=== PATIENT | female | born 1950 | race Caucasian/White ===

== ENCOUNTER 2022-05-14 10:51 | Inpatient (IN) | payer MEDICARE ==
[~2022-05-14] VITALS: Ht 157.5 cm; Wt 56.7 kg
[2022-05-14 10:52] VITALS: BP_SYST 122
[2022-05-14] MEDS ORDERED: IPRATROPIUM/ALBUTEROL SULFATE 3 ML AMPUL.NEB (DUONEB) INH ONE (11:00)
[2022-05-14] MEDS ORDERED: methylPREDNISolone SOD SUCC/PF 62.5 MG/ML VIAL IVP ONE (11:30)
[2022-05-14 11:39] LABS: BASOPHILS # (AUTO) 0.1 K/uL (0.0-0.2); BASOPHILS % (AUTO) 0.8 % (0.0-2.0); EOSINOPHILS % (AUTO) 0.2 % (0.0-4.0); HEMATOCRIT 42.2 % (36-48); HEMOGLOBIN 14.4 g/dL (12.0-16.0); LYMPHOCYTES # (AUTO) 1.5 K/uL (1.0-5.5); LYMPHOCYTES % (AUTO) 9.6 % (20.5-51.5); MEAN CORPUSCULAR HEMOGLOBIN 33 pg (27-31); MEAN CORPUSCULAR HGB CONC 34 % (32-36); MEAN CORPUSCULAR VOLUME 98 fL (79.0-98.0); MONOCYTES # (AUTO) 1.1 K/uL (0.0-1.0); MONOCYTES % (AUTO) 6.9 % (1.7-9.3); NEUTROPHILS # (AUTO) 13.4 K/uL (1.8-7.7); NEUTROPHILS % (AUTO) 82.5 % (40.0-70.0); PLATELET COUNT (AUTO) 294 K/uL (130-430); RED BLOOD CELL COUNT(AUTO) 4.33 MIL/uL (4.2-6.2); RED CELL DISTRIBUTION WIDTH 14.3 % (9.0-15.0); WHITE BLOOD COUNT (AUTO) 16.2 K/uL (4.8-10.8)
[2022-05-14 11:57] LABS: ALANINE AMINOTRANSFERASE 33 U/L (12-78); ASPARTATE AMINOTRANSFERASE 37 U/L (10-37); CALCIUM 10.9 mg/dL (8.4-11.0); CREATININE 1.54 mg/dL (0.55-1.30); GLUCOSE 217 mg/dL (70-99); TOTAL BILIRUBIN 1.1 mg/dL (0.0-1.0); UREA NITROGEN, BLOOD 26 mg/dL (8-21)
[2022-05-14 12:01] LABS: GFR AFRICAN AMERICAN 43 mL/min (>90)
[2022-05-14 12:13] LABS: ANION GAP 10 (5-15); CHLORIDE 95 mmol/L (98-107); POTASSIUM 6.5 mmol/L (3.5-5.1); SODIUM SERUM 128 mmol/L (136-145)
[2022-05-14] MEDS ORDERED: CALCIUM GLUCONATE 1 GM/10 ML VIAL IVP ONE (12:15)
[2022-05-14] MEDS ORDERED: DEXTROSE 50% JECT 50 ML DISP.SYRIN IVP ONE (12:15)
[2022-05-14] MEDS ORDERED: INSULIN REGULAR, HUMAN 10 UNITS/0.1 ML INJ IVP ONE (12:15)
[2022-05-14] MEDS ORDERED: SODIUM BICARBONATE 8.4% VIAL 50 MEQ/50 ML VIAL INJ ONE (12:15)
[2022-05-14] MEDS ORDERED: ASPIRIN 81 MG TAB.CHEW PO ONE (12:45)
[2022-05-14] MEDS ORDERED: FUROSEMIDE 40 MG/4 ML VIAL IVP ONE ×2 (12:45→22:30)
[2022-05-14] MEDS ORDERED: NITROGLYCERIN 1 INCH (GM) OINT. TP ONE (12:45)
[2022-05-14] MEDS ORDERED: MIDAZOLAM HCL 5 MG/5 ML VIAL IVP ONE (14:30)
[2022-05-14] MEDS ORDERED: ACET-73 PO (15:37)
[2022-05-14] MEDS ORDERED: VERA120C2 PO (15:37)
[2022-05-14] MEDS ORDERED: ASPI-1155 PO (15:37)
[2022-05-14] MEDS ORDERED: DIGO125T PO (15:37)
[2022-05-14] MEDS ORDERED: TRAZ-250 PO (15:37)
[2022-05-14] MEDS ORDERED: CALC-1196 PO (15:37)
[2022-05-14] MEDS ORDERED: LEVO88TA2 PO (15:37)
[2022-05-14] MEDS ORDERED: ASCO500T20 PO (15:37)
[2022-05-14] MEDS ORDERED: PRO20 PO (15:37)
[2022-05-14] MEDS ORDERED: FURO-149 PO (15:37)
[2022-05-14] MEDS ORDERED: LISI20TA30 PO (15:37)
[2022-05-14] MEDS ORDERED: WARF4TAB72 PO (15:37)
[2022-05-14] MEDS ORDERED: hydrALAZINE HCL 20 MG/ML VIAL IVP PRN (16:30)
[2022-05-14 18:44] VITALS: BP_SYST 153
[2022-05-14] MEDS ORDERED: IPRATROPIUM BROM 0.5 MG/2.5 ML VIAL.NEB (ATROVENT) INH SCH (19:00)
[2022-05-14] MEDS ORDERED: IPRATROPIUM/ALBUTEROL SULFATE 3 ML AMPUL.NEB (DUONEB) INH SCH (19:00)
[2022-05-14] MEDS ORDERED: LORazepam 2 MG/ML VIAL IVP PRN (19:00)
[2022-05-14 20:07] VITALS: BP_SYST 153
[2022-05-14] MEDS ORDERED: ACETAMINOPHEN 500 MG TABLET PO PRN (20:30)
[2022-05-14] MEDS ORDERED: cefTRIAXone 1 GM in D5W 50 ML IV SCH (21:00)
[2022-05-15 00:28] LABS: CALCIUM 10.5 mg/dL (8.4-11.0); CREATININE 1.35 mg/dL (0.55-1.30); POTASSIUM 3.2 mmol/L (3.5-5.1)
[2022-05-15 00:37] LABS: ALBUMIN 3.9 g/dL (3.4-4.8); TOTAL BILIRUBIN 1.5 mg/dL (0.0-1.0)
[2022-05-15 01:17] VITALS: BP_SYST 151
[2022-05-15] MEDS ORDERED: levalbuterol HCL 0.63 MG/3 ML VIAL.NEB INH PRN (02:00)
[2022-05-15] MEDS: levalbuterol HCL 0.63 MG/3 ML VIAL.NEB INH SCH ×3 (07:26→20:48)
[2022-05-15 07:57] LABS: CALCIUM 9.6 mg/dL (8.4-11.0); CREATININE 1.24 mg/dL (0.55-1.30)
[2022-05-15 08:00] VITALS: BP_SYST 143
[2022-05-15 08:01] LABS: BASOPHILS % (AUTO) 0.2 % (0.0-2.0); HEMATOCRIT 40.7 % (36-48); HEMOGLOBIN 14.1 g/dL (12.0-16.0); LYMPHOCYTES % (AUTO) 5.1 % (20.5-51.5); MEAN CORPUSCULAR HEMOGLOBIN 33 pg (27-31); MEAN CORPUSCULAR HGB CONC 35 % (32-36); MEAN CORPUSCULAR VOLUME 95 fL (79.0-98.0); MONOCYTES # (AUTO) 1.4 K/uL (0.0-1.0); MONOCYTES % (AUTO) 6.8 % (1.7-9.3); NEUTROPHILS # (AUTO) 17.9 K/uL (1.8-7.7); NEUTROPHILS % (AUTO) 87.9 % (40.0-70.0); PLATELET COUNT (AUTO) 240 K/uL (130-430); RED BLOOD CELL COUNT(AUTO) 4.28 MIL/uL (4.2-6.2); RED CELL DISTRIBUTION WIDTH 14.1 % (9.0-15.0)
[2022-05-15 08:13] LABS: ALBUMIN 3.1 g/dL (3.4-4.8); THYROID STIMULATING HORMONE 2.31 uIu/mL (0.36-3.74); TOTAL BILIRUBIN 1.1 mg/dL (0.0-1.0)
[2022-05-15 08:21] LABS: INR 2.9 (0.8-1.2)
[2022-05-15 08:24] LABS: POTASSIUM 2.7 mmol/L (3.5-5.1); WHITE BLOOD COUNT (AUTO) 20.4 K/uL (4.8-10.8)
[2022-05-15 08:35] LABS: PROTHROMBIN TIME 27.3 SECS (9.5-12.5)
[2022-05-15] MEDS ORDERED: POTASSIUM CHLORIDE 60 MEQ in NS 500 ML IV ONE (08:45)
[2022-05-15] MEDS: PANTOPRAZOLE SODIUM 40 MG/VIAL (PROTONIX) IVP SCH (09:17)
[2022-05-15] MEDS: cefTRIAXone 1 GM in D5W 50 ML IV SCH (09:18)
[2022-05-15] MEDS: VERAPAMIL HCL 120 MG TABLET.SA PO SCH (10:21)
[2022-05-15] MEDS: POTASSIUM CHLORIDE 20 MEQ/PKT PACKET PO SCH ×2 (10:21→21:51)
[2022-05-15] MEDS: FLUoxetine HCL 20 MG CAPSULE (PROzac) PO SCH (10:22)
[2022-05-15] MEDS: ASPIRIN 81 MG TAB.CHEW PO SCH (10:22)
[2022-05-15] MEDS: DIGOXIN 0.125 MG TABLET PO SCH (10:22)
[2022-05-15] MEDS: FUROSEMIDE 40 MG/4 ML VIAL IVP SCH ×2 (11:00→21:51)
[2022-05-15 11:34] VITALS: BP_SYST 116
[2022-05-15] MEDS: METHYLPREDNISOLONE SOD SUCC 40 MG/ML VIAL IVP SCH ×3 (12:03→23:56)
[2022-05-15 15:39] VITALS: BP_SYST 118
[2022-05-15] MEDS: WARFARIN SODIUM 4 MG TABLET PO SCH (17:27)
[2022-05-15] MEDS: traZODone HCL 50 MG TABLET (DESYREL) PO SCH (21:49)
[2022-05-16 00:46] VITALS: BP_SYST 129
[2022-05-16] MEDS: levalbuterol HCL 0.63 MG/3 ML VIAL.NEB INH SCH ×4 (01:35→20:13)
[2022-05-16] MEDS: METHYLPREDNISOLONE SOD SUCC 40 MG/ML VIAL IVP SCH ×4 (06:21→23:10)
[2022-05-16 07:21] LABS: BASOPHILS % (AUTO) 0.2 % (0.0-2.0); HEMATOCRIT 36.2 % (36-48); HEMOGLOBIN 12.5 g/dL (12.0-16.0); LYMPHOCYTES # (AUTO) 0.6 K/uL (1.0-5.5); LYMPHOCYTES % (AUTO) 3.6 % (20.5-51.5); MEAN CORPUSCULAR HEMOGLOBIN 33 pg (27-31); MEAN CORPUSCULAR HGB CONC 34 % (32-36); MEAN CORPUSCULAR VOLUME 96 fL (79.0-98.0); MONOCYTES # (AUTO) 0.6 K/uL (0.0-1.0); MONOCYTES % (AUTO) 3.3 % (1.7-9.3); NEUTROPHILS # (AUTO) 15.8 K/uL (1.8-7.7); NEUTROPHILS % (AUTO) 92.9 % (40.0-70.0); PLATELET COUNT (AUTO) 203 K/uL (130-430); RED BLOOD CELL COUNT(AUTO) 3.76 MIL/uL (4.2-6.2)
[2022-05-16 07:28] LABS: INR 2.5 (0.8-1.2); PROTHROMBIN TIME 24.3 SECS (9.5-12.5)
[2022-05-16 07:58] LABS: CALCIUM 8.6 mg/dL (8.4-11.0); CREATININE 1.03 mg/dL (0.55-1.30)
[2022-05-16 08:00] VITALS: BP_SYST 128
[2022-05-16 08:15] LABS: ALBUMIN 3.3 g/dL (3.4-4.8); THYROID STIMULATING HORMONE 0.9 uIu/mL (0.36-3.74); TOTAL BILIRUBIN 0.8 mg/dL (0.0-1.0)
[2022-05-16 08:20] LABS: POTASSIUM 2.7 mmol/L (3.5-5.1)
[2022-05-16] MEDS: VERAPAMIL HCL 120 MG TABLET.SA PO SCH (08:27)
[2022-05-16] MEDS: LEVOTHYROXINE SODIUM 0.088 MG TABLET PO SCH (08:27)
[2022-05-16] MEDS: FLUoxetine HCL 20 MG CAPSULE (PROzac) PO SCH (08:28)
[2022-05-16] MEDS: cefTRIAXone 1 GM in D5W 50 ML IV SCH (08:28)
[2022-05-16] MEDS: DIGOXIN 0.125 MG TABLET PO SCH (08:28)
[2022-05-16] MEDS: ASPIRIN 81 MG TAB.CHEW PO SCH (08:28)
[2022-05-16] MEDS: POTASSIUM CHLORIDE 20 MEQ/PKT PACKET PO SCH ×2 (08:29→22:55)
[2022-05-16] MEDS: PANTOPRAZOLE SODIUM 40 MG/VIAL (PROTONIX) IVP SCH (08:29)
[2022-05-16] MEDS ORDERED: KCL 20 mEq in 100 mL (PREMIX) 300 ML IV ONE (08:45)
[2022-05-16] MEDS ORDERED: KCL 40 mEq in 100 mL (PREMIX) 100 ML IV ONE (08:45)
[2022-05-16 12:30] VITALS: BP_SYST 101
[2022-05-16 13:33] LABS: DIGOXIN 0.4 ng/mL (0.80-2.00)
[2022-05-16 16:40] VITALS: BP_SYST 119
[2022-05-16] MEDS: WARFARIN SODIUM 4 MG TABLET PO SCH (17:49)
[2022-05-16 19:00] VITALS: BP_SYST 132
[2022-05-16] MEDS: traZODone HCL 50 MG TABLET (DESYREL) PO SCH (22:55)
[2022-05-16] MEDS: FUROSEMIDE 40 MG TABLET PO SCH (22:55)
[2022-05-16 23:24] VITALS: BP_SYST 135
[2022-05-17] VITALS (7 sets, daily range): BP systolic 130–142
[2022-05-17] MEDS: METHYLPREDNISOLONE SOD SUCC 40 MG/ML VIAL IVP SCH ×4 (06:27→23:16)
[2022-05-17] MEDS: LEVOTHYROXINE SODIUM 0.088 MG TABLET PO SCH (07:00)
[2022-05-17] MEDS: levalbuterol HCL 0.63 MG/3 ML VIAL.NEB INH SCH ×3 (07:29→20:10)
[2022-05-17] MEDS: cefTRIAXone 1 GM in D5W 50 ML IV SCH (08:49)
[2022-05-17] MEDS: FLUoxetine HCL 20 MG CAPSULE (PROzac) PO SCH (08:50)
[2022-05-17] MEDS: FUROSEMIDE 40 MG TABLET PO SCH ×2 (08:50→21:11)
[2022-05-17] MEDS: VERAPAMIL HCL 120 MG TABLET.SA PO SCH (08:51)
[2022-05-17] MEDS: DIGOXIN 0.125 MG TABLET PO SCH (08:51)
[2022-05-17] MEDS: PANTOPRAZOLE SODIUM 40 MG/VIAL (PROTONIX) IVP SCH (08:52)
[2022-05-17] MEDS: POTASSIUM CHLORIDE 20 MEQ/PKT PACKET PO SCH ×2 (08:52→21:10)
[2022-05-17] MEDS: ASPIRIN 81 MG TAB.CHEW PO SCH (08:52)
[2022-05-17 09:27] LABS: INR 3.1 (0.8-1.2); PROTHROMBIN TIME 29.5 SECS (9.5-12.5)
[2022-05-17 10:40] LABS: CALCIUM 8.6 mg/dL (8.4-11.0); CREATININE 1.03 mg/dL (0.55-1.30); POTASSIUM 3.2 mmol/L (3.5-5.1)
[2022-05-17 10:47] LABS: ALBUMIN 3.5 g/dL (3.4-4.8); TOTAL BILIRUBIN 0.6 mg/dL (0.0-1.0)
[2022-05-17] MEDS ORDERED: POTASSIUM CHLORIDE 20 MEQ/PKT PACKET PO ONE (11:30)
[2022-05-17] MEDS: VANCOMYCIN HCL 1,000 MG in NS 250 ML IV SCH (16:00)
[2022-05-17] MEDS ORDERED: WARFARIN SODIUM 2 MG TABLET PO SCH (18:00)
[2022-05-17] MEDS: traZODone HCL 50 MG TABLET (DESYREL) PO SCH (21:11)
[2022-05-18] MEDS: levalbuterol HCL 0.63 MG/3 ML VIAL.NEB INH SCH ×4 (01:36→19:48)
[2022-05-18 02:03] VITALS: BP_SYST 135
[2022-05-18 05:09] VITALS: BP_SYST 139
[2022-05-18] MEDS: METHYLPREDNISOLONE SOD SUCC 40 MG/ML VIAL IVP SCH (05:19)
[2022-05-18] MEDS: LEVOTHYROXINE SODIUM 0.088 MG TABLET PO SCH (06:45)
[2022-05-18 08:00] VITALS: BP_SYST 116
[2022-05-18] MEDS: FLUoxetine HCL 20 MG CAPSULE (PROzac) PO SCH (09:33)
[2022-05-18] MEDS: ASPIRIN 81 MG TAB.CHEW PO SCH (09:34)
[2022-05-18] MEDS: VERAPAMIL HCL 120 MG TABLET.SA PO SCH (09:34)
[2022-05-18] MEDS: FUROSEMIDE 40 MG TABLET PO SCH ×2 (09:35→21:52)
[2022-05-18] MEDS: POTASSIUM CHLORIDE 20 MEQ/PKT PACKET PO SCH ×2 (09:35→21:52)
[2022-05-18] MEDS: cefTRIAXone 1 GM in D5W 50 ML IV SCH (09:38)
[2022-05-18] MEDS: PANTOPRAZOLE SODIUM 40 MG/VIAL (PROTONIX) IVP SCH (09:38)
[2022-05-18 09:39] LABS: INR 2.5 (0.8-1.2); PROTHROMBIN TIME 24.2 SECS (9.5-12.5)
[2022-05-18] MEDS: DIGOXIN 0.125 MG TABLET PO SCH (09:44)
[2022-05-18 12:00] VITALS: BP_SYST 158
[2022-05-18 16:00] VITALS: BP_SYST 117
[2022-05-18] MEDS: VANCOMYCIN HCL 1,000 MG in NS 250 ML IV SCH (16:51)
[2022-05-18] MEDS ORDERED: WARFARIN SODIUM 3 MG TABLET PO SCH (18:00)
[2022-05-18] MEDS ORDERED: WARFARIN SODIUM 2.5 MG TABLET PO SCH (18:00)
[2022-05-18 20:44] VITALS: BP_SYST 122
[2022-05-18] MEDS: traZODone HCL 50 MG TABLET (DESYREL) PO SCH (21:51)
[2022-05-19 00:19] VITALS: BP_SYST 140
[2022-05-19] MEDS: levalbuterol HCL 0.63 MG/3 ML VIAL.NEB INH SCH ×4 (01:37→20:15)
[2022-05-19] MEDS: LEVOTHYROXINE SODIUM 0.088 MG TABLET PO SCH (06:42)
[2022-05-19 08:00] VITALS: BP_SYST 158
[2022-05-19 08:05] LABS: BASOPHILS % (AUTO) 0.1 % (0.0-2.0); EOSINOPHILS # (AUTO) 0.1 K/uL (0.0-0.4); EOSINOPHILS % (AUTO) 0.6 % (0.0-4.0); HEMATOCRIT 36.8 % (36-48); HEMOGLOBIN 12.8 g/dL (12.0-16.0); LYMPHOCYTES # (AUTO) 1.3 K/uL (1.0-5.5); MEAN CORPUSCULAR HEMOGLOBIN 33 pg (27-31); MEAN CORPUSCULAR HGB CONC 35 % (32-36); MEAN CORPUSCULAR VOLUME 96 fL (79.0-98.0); MONOCYTES # (AUTO) 1.1 K/uL (0.0-1.0); MONOCYTES % (AUTO) 10.5 % (1.7-9.3); NEUTROPHILS # (AUTO) 7.8 K/uL (1.8-7.7); NEUTROPHILS % (AUTO) 75.8 % (40.0-70.0); PLATELET COUNT (AUTO) 194 K/uL (130-430); RED BLOOD CELL COUNT(AUTO) 3.83 MIL/uL (4.2-6.2); RED CELL DISTRIBUTION WIDTH 13.8 % (9.0-15.0); WHITE BLOOD COUNT (AUTO) 10.3 K/uL (4.8-10.8)
[2022-05-19 08:40] LABS: PROTHROMBIN TIME 19.5 SECS (9.5-12.5)
[2022-05-19] MEDS ORDERED: predniSONE 20 MG TABLET PO SCH (09:00)
[2022-05-19 09:02] LABS: CALCIUM 8.3 mg/dL (8.4-11.0); CREATININE 0.72 mg/dL (0.55-1.30); TOTAL BILIRUBIN 0.7 mg/dL (0.0-1.0)
[2022-05-19] MEDS: PANTOPRAZOLE SODIUM 40 MG/VIAL (PROTONIX) IVP SCH (09:13)
[2022-05-19] MEDS: POTASSIUM CHLORIDE 20 MEQ/PKT PACKET PO SCH ×2 (09:14→20:42)
[2022-05-19] MEDS: DIGOXIN 0.125 MG TABLET PO SCH (09:14)
[2022-05-19] MEDS: VERAPAMIL HCL 120 MG TABLET.SA PO SCH (09:14)
[2022-05-19] MEDS: FLUoxetine HCL 20 MG CAPSULE (PROzac) PO SCH (09:15)
[2022-05-19] MEDS: FUROSEMIDE 40 MG TABLET PO SCH ×2 (09:15→20:42)
[2022-05-19] MEDS: ASPIRIN 81 MG TAB.CHEW PO SCH (09:16)
[2022-05-19] MEDS: cefTRIAXone 1 GM in D5W 50 ML IV SCH (09:16)
[2022-05-19 09:41] LABS: POTASSIUM 3.8 mmol/L (3.5-5.1)
[2022-05-19 12:00] VITALS: BP_SYST 115
[2022-05-19 16:00] VITALS: BP_SYST 132
[2022-05-19] MEDS: VANCOMYCIN HCL 1,000 MG in NS 250 ML IV SCH (16:38)
[2022-05-19] MEDS ORDERED: WARFARIN SODIUM 5 MG TABLET PO SCH (18:00)
[2022-05-19] MEDS ORDERED: WARFARIN SODIUM 4 MG TABLET PO SCH (18:00)
[2022-05-19 20:13] VITALS: BP_SYST 135
[2022-05-19] MEDS: DOCUSATE SODIUM 100 MG CAPSULE PO SCH (20:42)
[2022-05-19] MEDS: traZODone HCL 50 MG TABLET (DESYREL) PO SCH (20:42)
[2022-05-20 00:21] VITALS: BP_SYST 153
[2022-05-20] MEDS: DOCUSATE SODIUM 100 MG CAPSULE PO SCH ×2 (01:00→08:53)
[2022-05-20] MEDS: levalbuterol HCL 0.63 MG/3 ML VIAL.NEB INH SCH ×3 (01:00→13:52)
[2022-05-20] MEDS: LEVOTHYROXINE SODIUM 0.088 MG TABLET PO SCH (07:30)
[2022-05-20 08:00] VITALS: BP_SYST 147
[2022-05-20 08:18] LABS: BASOPHILS % (AUTO) 0.2 % (0.0-2.0); EOSINOPHILS # (AUTO) 0.1 K/uL (0.0-0.4); EOSINOPHILS % (AUTO) 1.2 % (0.0-4.0); HEMOGLOBIN 13.2 g/dL (12.0-16.0); LYMPHOCYTES # (AUTO) 1.4 K/uL (1.0-5.5); LYMPHOCYTES % (AUTO) 12.2 % (20.5-51.5); MEAN CORPUSCULAR HEMOGLOBIN 33 pg (27-31); MEAN CORPUSCULAR HGB CONC 34 % (32-36); MEAN CORPUSCULAR VOLUME 96 fL (79.0-98.0); MONOCYTES # (AUTO) 1.1 K/uL (0.0-1.0); MONOCYTES % (AUTO) 9.7 % (1.7-9.3); NEUTROPHILS # (AUTO) 8.5 K/uL (1.8-7.7); NEUTROPHILS % (AUTO) 76.7 % (40.0-70.0); PLATELET COUNT (AUTO) 208 K/uL (130-430); RED BLOOD CELL COUNT(AUTO) 4.05 MIL/uL (4.2-6.2); WHITE BLOOD COUNT (AUTO) 11.1 K/uL (4.8-10.8)
[2022-05-20 08:30] LABS: INR 1.5 (0.8-1.2); PROTHROMBIN TIME 15.8 SECS (9.5-12.5)
[2022-05-20] MEDS: POTASSIUM CHLORIDE 20 MEQ/PKT PACKET PO SCH ×2 (08:52→21:00)
[2022-05-20] MEDS: ASPIRIN 81 MG TAB.CHEW PO SCH (08:52)
[2022-05-20] MEDS: FLUoxetine HCL 20 MG CAPSULE (PROzac) PO SCH (08:54)
[2022-05-20] MEDS: DIGOXIN 0.125 MG TABLET PO SCH (08:54)
[2022-05-20] MEDS: VERAPAMIL HCL 120 MG TABLET.SA PO SCH (08:54)
[2022-05-20] MEDS: FUROSEMIDE 40 MG TABLET PO SCH ×2 (08:55→21:00)
[2022-05-20 09:00] LABS: CALCIUM 7.2 mg/dL (8.4-11.0); CREATININE 0.83 mg/dL (0.55-1.30); POTASSIUM 3.6 mmol/L (3.5-5.1)
[2022-05-20] MEDS: PANTOPRAZOLE SODIUM 40 MG TAB PO SCH (09:00)
[2022-05-20] MEDS: cefTRIAXone 1 GM in D5W 50 ML IV SCH (09:16)
[2022-05-20] MEDS: PANTOPRAZOLE SODIUM 40 MG/VIAL (PROTONIX) IVP SCH (09:16)
[2022-05-20] MEDS: predniSONE 10 MG TABLET PO SCH (09:56)
[2022-05-20 12:00] VITALS: BP_SYST 101
[2022-05-20 16:00] VITALS: BP_SYST 112
[2022-05-20] MEDS: WARFARIN SODIUM 4 MG TABLET PO SCH (18:24)
[2022-05-20] MEDS: traZODone HCL 50 MG TABLET (DESYREL) PO SCH (21:00)
[2022-05-21] MEDS: levalbuterol HCL 0.63 MG/3 ML VIAL.NEB INH SCH ×5 (01:00→21:11)
[2022-05-21] MEDS: LEVOTHYROXINE SODIUM 0.088 MG TABLET PO SCH (07:00)
[2022-05-21 08:00] VITALS: BP_SYST 114
[2022-05-21 08:40] LABS: INR 1.4 (0.8-1.2); PROTHROMBIN TIME 14.5 SECS (9.5-12.5)
[2022-05-21] MEDS: FLUoxetine HCL 20 MG CAPSULE (PROzac) PO SCH (11:14)
[2022-05-21] MEDS: ASPIRIN 81 MG TAB.CHEW PO SCH (11:14)
[2022-05-21] MEDS: cefTRIAXone 1 GM in D5W 50 ML IV SCH (11:14)
[2022-05-21] MEDS: PANTOPRAZOLE SODIUM 40 MG TAB PO SCH (11:14)
[2022-05-21] MEDS: DIGOXIN 0.125 MG TABLET PO SCH (11:15)
[2022-05-21] MEDS: DOCUSATE SODIUM 100 MG CAPSULE PO SCH ×2 (11:15→20:57)
[2022-05-21] MEDS: POTASSIUM CHLORIDE 20 MEQ/PKT PACKET PO SCH ×2 (11:16→20:55)
[2022-05-21] MEDS: VERAPAMIL HCL 120 MG TABLET.SA PO SCH (11:16)
[2022-05-21] MEDS: FUROSEMIDE 40 MG TABLET PO SCH ×2 (11:17→20:56)
[2022-05-21] MEDS: predniSONE 10 MG TABLET PO SCH (11:17)
[2022-05-21 12:00] VITALS: BP_SYST 120
[2022-05-21 16:00] VITALS: BP_SYST 136
[2022-05-21] MEDS: WARFARIN SODIUM 4 MG TABLET PO SCH (17:58)
[2022-05-21 20:00] VITALS: BP_SYST 128
[2022-05-21 20:31] VITALS: BP_SYST 132
[2022-05-21] MEDS: traZODone HCL 50 MG TABLET (DESYREL) PO SCH (20:56)
[2022-05-22] VITALS: BP_SYST 120
[2022-05-22] MEDS: levalbuterol HCL 0.63 MG/3 ML VIAL.NEB INH SCH ×4 (01:00→20:21)
[2022-05-22] MEDS: LEVOTHYROXINE SODIUM 0.088 MG TABLET PO SCH (05:05)
[2022-05-22 08:00] VITALS: BP_SYST 139
[2022-05-22] MEDS: DIGOXIN 0.125 MG TABLET PO SCH (08:38)
[2022-05-22] MEDS: POTASSIUM CHLORIDE 20 MEQ/PKT PACKET PO SCH ×2 (08:38→21:05)
[2022-05-22] MEDS: ASPIRIN 81 MG TAB.CHEW PO SCH (08:38)
[2022-05-22] MEDS: FUROSEMIDE 40 MG TABLET PO SCH ×2 (08:38→21:05)
[2022-05-22] MEDS: FLUoxetine HCL 20 MG CAPSULE (PROzac) PO SCH (08:39)
[2022-05-22] MEDS: VERAPAMIL HCL 120 MG TABLET.SA PO SCH (08:39)
[2022-05-22] MEDS: predniSONE 10 MG TABLET PO SCH (08:39)
[2022-05-22] MEDS: PANTOPRAZOLE SODIUM 40 MG TAB PO SCH (08:40)
[2022-05-22] MEDS: DOCUSATE SODIUM 100 MG CAPSULE PO SCH ×2 (08:40→21:05)
[2022-05-22] MEDS: cefTRIAXone 1 GM in D5W 50 ML IV SCH (08:40)
[2022-05-22 09:59] LABS: INR 1.6 (0.8-1.2); PROTHROMBIN TIME 16.1 SECS (9.5-12.5)
[2022-05-22 12:00] VITALS: BP_SYST 128
[2022-05-22 16:00] VITALS: BP_SYST 125
[2022-05-22] MEDS: WARFARIN SODIUM 4 MG TABLET PO SCH (18:17)
[2022-05-22 20:00] VITALS: BP_SYST 126
[2022-05-22] MEDS: traZODone HCL 50 MG TABLET (DESYREL) PO SCH (21:05)
[2022-05-23] VITALS (7 sets, daily range): BP systolic 120–140
[2022-05-23] MEDS: levalbuterol HCL 0.63 MG/3 ML VIAL.NEB INH SCH ×4 (01:00→19:50)
[2022-05-23 07:18] LABS: INR 1.8 (0.8-1.2); PROTHROMBIN TIME 17.8 SECS (9.5-12.5)
[2022-05-23] MEDS: predniSONE 10 MG TABLET PO SCH (08:19)
[2022-05-23] MEDS: DOCUSATE SODIUM 100 MG CAPSULE PO SCH ×2 (08:19→21:01)
[2022-05-23] MEDS: POTASSIUM CHLORIDE 20 MEQ/PKT PACKET PO SCH ×2 (08:19→21:00)
[2022-05-23] MEDS: ASPIRIN 81 MG TAB.CHEW PO SCH (08:19)
[2022-05-23] MEDS: PANTOPRAZOLE SODIUM 40 MG TAB PO SCH (08:19)
[2022-05-23] MEDS: FLUoxetine HCL 20 MG CAPSULE (PROzac) PO SCH (08:19)
[2022-05-23] MEDS: LEVOTHYROXINE SODIUM 0.088 MG TABLET PO SCH (08:19)
[2022-05-23] MEDS: FUROSEMIDE 40 MG TABLET PO SCH ×2 (08:20→21:00)
[2022-05-23] MEDS: DIGOXIN 0.125 MG TABLET PO SCH (08:21)
[2022-05-23] MEDS: cefTRIAXone 1 GM in D5W 50 ML IV SCH (08:21)
[2022-05-23] MEDS: VERAPAMIL HCL 120 MG TABLET.SA PO SCH (08:21)
[2022-05-23] MEDS: WARFARIN SODIUM 4 MG TABLET PO SCH (17:08)
[2022-05-23] MEDS: traZODone HCL 50 MG TABLET (DESYREL) PO SCH (21:00)
[2022-05-24] VITALS: BP_SYST 152
[2022-05-24] MEDS: levalbuterol HCL 0.63 MG/3 ML VIAL.NEB INH SCH ×2 (01:00→07:22)
[2022-05-24] MEDS: LEVOTHYROXINE SODIUM 0.088 MG TABLET PO SCH (06:38)
[2022-05-24 07:52] LABS: INR 2.1 (0.8-1.2); PROTHROMBIN TIME 21.3 SECS (9.5-12.5)
[2022-05-24 08:00] VITALS: BP_SYST 140
[2022-05-24] MEDS: FLUoxetine HCL 20 MG CAPSULE (PROzac) PO SCH (08:26)
[2022-05-24] MEDS: DOCUSATE SODIUM 100 MG CAPSULE PO SCH (08:26)
[2022-05-24] MEDS: PANTOPRAZOLE SODIUM 40 MG TAB PO SCH (08:26)
[2022-05-24] MEDS: cefTRIAXone 1 GM in D5W 50 ML IV SCH (08:26)
[2022-05-24] MEDS: ASPIRIN 81 MG TAB.CHEW PO SCH (08:26)
[2022-05-24] MEDS: POTASSIUM CHLORIDE 20 MEQ/PKT PACKET PO SCH (08:26)
[2022-05-24] MEDS: VERAPAMIL HCL 120 MG TABLET.SA PO SCH (08:27)
[2022-05-24] MEDS: FUROSEMIDE 40 MG TABLET PO SCH (08:28)
[2022-05-24] MEDS: DIGOXIN 0.125 MG TABLET PO SCH (08:28)
[2022-05-24] MEDS: predniSONE 10 MG TABLET PO SCH (08:29)
[2022-05-24] MEDS ORDERED: FURO-149 PO (10:06)
[2022-05-24] MEDS ORDERED: POTA-197 PO (10:07)
[2022-05-24] MEDS ORDERED: WARF7.5T49 PO (11:21)
[2022-05-24] MEDS ORDERED: WARF-52 PO (11:26)
[2022-05-24 11:52] VITALS: BP_SYST 142
[2022-05-24 12:00] VITALS: BP_SYST 135
[2022-05-24] MEDS ORDERED: WARFARIN SODIUM 6 MG TABLET PO ONE (14:15)
[2022-05-24] MEDS ORDERED: WARFARIN SODIUM 6 MG TABLET PO SCH (17:00)
== END 2022-05-24 15:00 | disposition home health service (06) | DRG 871 ==
LOC: SED 10:51 → STU 15:22 → SMU 05-20 05:52
PROVIDERS: ADMIT Internal Medicine; ATTEND Internal Medicine
PROC: 5A09357 Assistance with Respiratory Ventilation, Less than 24 Consecutive Hours, Continuous Positive Airway Pressure (ICD-10-PCS; principal; 2022-05-14)
DX: A41.9 Sepsis, unspecified organism (principal); I50.23 Acute on chronic systolic (congestive) heart failure; J96.00 Acute respiratory failure, unspecified whether with hypoxia or hypercapnia; N17.0 Acute kidney failure with tubular necrosis; I24.8 Other forms of acute ischemic heart disease; J44.1 Chronic obstructive pulmonary disease with (acute) exacerbation; I48.20 Chronic atrial fibrillation, unspecified; I42.9 Cardiomyopathy, unspecified; I36.1 Nonrheumatic tricuspid (valve) insufficiency; I11.0 Hypertensive heart disease with heart failure; E03.9 Hypothyroidism, unspecified; F32.A Depression, unspecified; E78.5 Hyperlipidemia, unspecified; E87.5 Hyperkalemia; Z20.822 Contact with and (suspected) exposure to COVID-19; Z88.6 Allergy status to analgesic agent; Z79.82 Long term (current) use of aspirin; Z79.899 Other long term (current) drug therapy; Z79.01 Long term (current) use of anticoagulants; Z87.891 Personal history of nicotine dependence; Z95.2 Presence of prosthetic heart valve
CPT/HCPCS: 36415; 36600; 71045; 80048; 80053; 80061; 80162; 82803-TC; 82962; 83735; 83880; 84443; 84484; 85025; 85610-TC; 85651-TC; 87040; 93005; 93306; 94640; 94660; 94760; 96374; 96375; 99291; 99292; C9113; G0378; J0360; J0610; J0696; J1030; J1815; J1940; J2060; J2250; J2930; J3370; J3480; J7040; J7050; J7060; J7512; J7614